=== PATIENT | female | born 1995 | race Caucasian/White ===

== ENCOUNTER 2017-03-08 19:47 | Emergency (ER) | payer BC, OTHER ==
[~2017-03-08] VITALS: Ht 165.1 cm; Wt 58.7 kg
[2017-03-08] MEDS ORDERED: SODIUM CHLORIDE 0.9% 500ML 500 ML IV STA (20:14)
[2017-03-08] MEDS ORDERED: ONDANSETRON INJ 2 MG/ML 2 ML VIAL IV STA (20:14)
[2017-03-08] MEDS ORDERED: VENL150C56 PO (20:16)
[2017-03-08] MEDS ORDERED: TRAZ1TAB5 PO (20:16)
[2017-03-08] MEDS ORDERED: MULT-506 PO (20:16)
[2017-03-08] MEDS ORDERED: ARIP2TAB3 PO (20:16)
[2017-03-08] MEDS ORDERED: BUSP15TA70 PO (20:16)
[2017-03-08] MEDS ORDERED: SERTRA PO (20:16)
[2017-03-08] MEDS ORDERED: ONDANSETRON INJ 2 MG/ML 2 ML VIAL ONE (20:16)
[2017-03-08 20:26] VITALS: TEMP 36.7; Ht 165.1 cm; Wt 58.7 kg
--- NOTE | 2017-03-08 20:42 | EMERGENCY ROOM VISIT NOTE ---
History Report prepared by Choco: Jose Torres Under the Supervision of: Dr. Ramy Ogden M.D. First contact with patient: 20:05 Chief Complaint: ALCOHOL OVERDOSE Stated Complaint: DEHYDRATION History of Present Illness The patient is a 22 year old female who presents to the Emergency Room via EMS with complaints of unresponsiveness occurring a few minutes prior to arrival. The patient came to [facility] from [place] for a concert. She had 3 beers, 4 shots of an alcoholic drink, and was sipping bear. The patient was at baseline prior to the onset of her symptoms. About 20-30 minutes prior to the onset of her symptoms, the patient told a friend that she was feeling drunk. Within 2-3 minutes, she started crying and her behavior seemed different than earlier. About 10-15 minutes later, the patient went into the bathroom and did not come out. She was found unresponsive in the bathroom. She did not have any known trauma. The patient received 500 cc of saline in route to the Emergency Room. She has been vomiting. She does not have a history of diabetes or kidney problems. She has a history of anorexia. Her last hospitalization related to anorexia was in 2016. HPI is limited secondary to alcohol overdose. Additional history is obtained as per boyfriend. Source of History: patient History Limited By: other (alcohol overdose) Onset: a few minutes prior to arrival Position: other (global) Quality: other (unresponsiveness) Review of Systems ROS is limited secondary to alcohol overdose. Past Medical & Surgical Medical Problems: (1) Anorexia Family History Patient reports no known family medical history. Social History Alcohol Use: occasionally Marital Status: in relationship Current/Historical Medications Scheduled Aripiprazole (Abilify), 2 MG PO DAILY Buspirone Hcl (Buspar), 15 MG PO BID Multivitamin (Multivitamin), 1 TAB PO DAILY Venlafaxine Hcl (Effexor Extended Rel), 150 MG PO DAILY [Sertra], 80 MG PO DAILY Scheduled PRN Trazodone Hcl (Desyrel), 50 MG PO HS PRN for Sleep Allergies Coded Allergies: No Known Allergies (Unverified , 03/08/17) Physical Exam Vital Signs Date Time Temp Pulse Resp B/P (MAP) Pulse Ox O2 Delivery O2 Flow Rate FiO2 03/08/17 21:00 100/62 03/08/17 20:52 71 21 97 03/08/17 20:26 36.7 83 14 106/76 96 Room Air 03/08/17 20:22 67 17 97 03/08/17 20:17 67 16 96 03/08/17 20:01 114/81 03/08/17 20:00 91 03/08/17 19:54 106/76 Physical Exam GENERAL: Patient is in no acute distress. Smells of alcohol. Some vomitus on her clothes. HEENT: No acute trauma, normocephalic atraumatic, mucous membranes moist, no nasal congestion, no scleral icterus. Pupils equal and reactive to light. No obvious head trauma. NECK: No stridor, no adenopathy, no meningismus, trachea is midline. LUNGS: Clear to auscultation bilaterally, no wheeze, no rhonchi, breath sounds equal. HEART: Without murmurs gallops or rubs, regular rate and rhythm. ABDOMEN: Soft, nontender, bowel sounds positive, no hernias, no peritonitis. EXTREMITIES: No cyanosis or edema, full range of motion of all the joints without pain or difficulty, no signs for acute trauma. NEUROLOGIC: Significantly intoxicated with alcohol, no acute motor or sensory deficits, no focal weakness. SKIN: No rash, no jaundice, no diaphoresis. Medical Decision & Procedures Laboratory Results 03/08/17 20:56 Test 03/08/17 20:56 Anion Gap 8.0 mmol/L (3-11) Est Creatinine Clear Calc Drug Dose 83.8 ml/min Estimated GFR () 99.1 Estimated GFR (Non- 85.5 BUN/Creatinine Ratio 13.6 (10-20) Calcium Level 7.6 mg/dl (8.5-10.1) Ethyl Alcohol mg/dL 274.0 mg/dl (0-3) Laboratory results reviewed by me. Medications Administered Medications (Trade) Dose Ordered Sig/Braden Route Start Time Stop Time Status Last Admin Dose Admin Sodium Chloride 500 ml @ 999 mls/hr Q31M STAT IV 03/08/17 20:14 03/08/17 20:44 DC 03/08/17 20:20 999 MLS/HR Ondansetron HCl (Zofran Inj) 4 mg STK-MED ONCE .ROUTE 03/08/17 20:16 03/08/17 20:17 DC 03/08/17 20:19 4 MG ED Course 2004: The patient was evaluated in room A03. A complete history and physical exam was performed. 2013: Sodium Chloride 500 ml @ 999 mls/hr IV, Zofran Inj 4 mg IV 2229: The patient was signed out to Dr. Edmond at [email or web address]. Medical Decision Medication Reconciliation: I attest that I have personally reviewed the patient' s current medication list. Blood Pressure Screening: Patient was found to have normal blood pressure on screening and does not require follow-up. Differential diagnosis includes but is not limited to dehydration, alcohol overdose, electrolyte imbalance, head trauma, drug abuse, aspiration. The patient presents with a presumed alcohol overdose. She had been vomiting. There was no reported trauma. The patient had received IV saline 500 mL prior to arrival. She received an additional 500 mL of saline while in the emergency room. She was given 4 mg of Zofran IV to prevent any further vomiting. There is no significant electrolyte abnormality or kidney failure. Alcohol level is around 270, consistent with her presentation and with alcohol overdose. Patient is maintaining her airway, she is in no distress. She is resting now, she is on the cardiac and pulse ox monitor. The patient will require further observation in the emergency room. Once her alcohol clears and she is more awake, she can be discharged. At this point, her care is being assumed by Dr. Edmond. He has assumed care at the change of shift. Please see his notes for the final disposition and plan. Impression Primary Impression: Alcohol overdose Additional Impression: Vomiting Scribe Attestation The scribe's documentation has been prepared under my direction and personally reviewed by me in its entirety. I confirm that the note above accurately reflects all work, treatment, procedures, and medical decision making performed by me. Departure Information Dispostion Home / Self-Care Forms HOME CARE DOCUMENTATION FORM, IMPORTANT VISIT INFORMATION Patient Instructions My [facility] Additional Instructions no alcohol in excess rest stay well hydrated return if worsening or see the nearest ER Problem Qualifiers
[2017-03-08 21:50] LABS: BUN/CREATININE RATIO 13.6 (10-20); CALCIUM 7.6 mg/dl (8.5-10.1); CREATININE 0.94 mg/dl (0.60-1.20); POTASSIUM 3.4 mmol/L (3.5-5.1)
--- NOTE | 2017-03-09 01:10 | EMERGENCY ROOM VISIT NOTE ---
ED Visit Note First contact with patient: 01:06 This patient was signed out to me by Dr. Ogden. The patient became intoxicated and started vomiting in the bathroom. There is no history of trauma per Dr. Ogden. I did reassess the patient. She is awake and alert. She has no complaints. She has no headache. She is able to ambulate without difficulty. She was discharged with her boyfriend.
[2017-03-09 01:40] VITALS: BP 102/62; PULSE 96; O2SAT 97
== END 2017-03-09 01:45 | disposition home or self-care (01) ==
LOC: C.EDA 19:48
DX: T51.91XA Toxic effect of unspecified alcohol, accidental (unintentional), initial encounter (principal); R11.10 Vomiting, unspecified; Y90.9 Presence of alcohol in blood, level not specified